=== PATIENT | male | born 1935 | race Hispanic/Latino ===

== ENCOUNTER 2016-09-12 11:44 | Outpatient (CLI) | payer MEDICARE ==
[2016-09-12 12:01] LABS: Hematocrit 42.4 % (35.5-45.6); Hemoglobin 14.2 gm/dl (11.8-15.2); Mean Corpuscular HGB Conc 34 % (32-34); Mean Corpuscular Hemoglobin 29 pg (28-32); Mean Corpuscular Volume 87 fl (84-94); Platelet Count 193 K/mm3 (140-440); Red Cell Distribution Width 14.7 % (13.2-15.2); White Blood Count 10.6 K/mm3 (4.5-11.0)
[2016-09-12 12:32] LABS: Erythrocyte Sedimentation Rate 11 mm/Hr (0-20)
== END 2016-09-12 11:45 | disposition home or self-care (01) ==
LOC: LAB 11:44
PROVIDERS: ATTEND Specialist
DX: M31.6 Other giant cell arteritis (principal)
CPT/HCPCS: 36415; 85027; 85652

== ENCOUNTER 2016-12-26 11:06 | Outpatient (CLI) | payer MEDICARE ==
[2016-12-26 11:15] LABS: Hematocrit 41.9 % (35.5-45.6); Hemoglobin 13.9 gm/dl (11.8-15.2); Mean Corpuscular HGB Conc 33 % (32-34); Mean Corpuscular Hemoglobin 28 pg (28-32); Mean Corpuscular Volume 85 fl (84-94); Platelet Count 179 K/mm3 (140-440); Red Blood Count 4.91 M/mm3 (3.65-5.03); Red Cell Distribution Width 14.4 % (13.2-15.2); White Blood Count 9.2 K/mm3 (4.5-11.0)
[2016-12-26 11:50] LABS: Erythrocyte Sedimentation Rate 21 mm/Hr (0-20)
== END 2016-12-26 11:07 | disposition home or self-care (01) ==
LOC: LAB 11:06
PROVIDERS: ATTEND Specialist
DX: M31.6 Other giant cell arteritis (principal)
CPT/HCPCS: 36415; 85027; 85652

== ENCOUNTER 2017-10-23 11:58 | Outpatient (CLI) | payer MEDICARE ==
[2017-10-23 12:14] LABS: Hematocrit 41.7 % (35.5-45.6); Hemoglobin 13.8 gm/dl (11.8-15.2); Mean Corpuscular HGB Conc 33 % (32-34); Mean Corpuscular Hemoglobin 28 pg (28-32); Mean Corpuscular Volume 86 fl (84-94); Platelet Count 220 K/mm3 (140-440); Red Blood Count 4.86 M/mm3 (3.65-5.03); Red Cell Distribution Width 14.6 % (13.2-15.2)
[2017-10-23 12:33] LABS: Erythrocyte Sedimentation Rate 18 mm/Hr (0-20)
== END 2017-10-23 11:59 | disposition home or self-care (01) ==
LOC: LAB 11:58
PROVIDERS: ATTEND Specialist
DX: M31.6 Other giant cell arteritis (principal)
CPT/HCPCS: 36415; 85027; 85652

== ENCOUNTER 2018-02-24 11:24 | Outpatient (CLI) | payer MEDICARE | END 2018-02-24 11:25 | disposition home or self-care (01) | LOC: LAB 11:24 | PROVIDERS: ATTEND Specialist | DX: M31.6 Other giant cell arteritis (principal) | CPT/HCPCS: 36415; 85652 ==